=== PATIENT | male | born 1960 | race Caucasian/White ===

== ENCOUNTER 2020-08-10 15:51 | Outpatient (CLI) | payer OTHER | END 2020-08-10 15:52 | disposition left against medical advice (07) | LOC: EMS 15:51 | DX: R55 Syncope and collapse (principal); S51.812A Laceration without foreign body of left forearm, initial encounter; V57.5XXA Driver of pick-up truck or van injured in collision with fixed or stationary object in traffic accident, initial encounter; Y93.89 Activity, other specified; Y92.410 Unspecified street and highway as the place of occurrence of the external cause ==

== ENCOUNTER 2020-08-10 21:58 | Outpatient (CLI) | payer OTHER | END 2020-08-10 21:59 | disposition critical access hospital (66) | LOC: EMS 21:58 | DX: R60.0 Localized edema (principal) | CPT/HCPCS: A0425; A0429 ==

== ENCOUNTER 2020-08-10 22:22 | Emergency (ER) | payer OTHER ==
[2020-08-10] MEDS ORDERED: GABAPENTIN 100 MG CAPSULE PO STA (23:17)
[2020-08-10] MEDS ORDERED: FUROSEMIDE 40 MG/4 ML VIAL IVP STA (23:18)
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
[2020-08-10 23:19] LABS: BASOPHILS # (AUTO) 0.1 10^3/uL (0.0-0.1); BASOPHILS % (AUTO) 1.2 %; EOSINOPHILS # (AUTO) 0.2 10^3/uL (0.0-0.7); EOSINOPHILS % (AUTO) 2.4 %; HCT - HEMATOCRIT 43.4 % (42.0-52.0); HGB - HEMOGLOBIN 14.9 g/dL (14.0-18.0); LYMPHOCYTES # (AUTO) 1.6 10^3/uL (1.5-3.5); LYMPHOCYTES % (AUTO) 24.5 %; MEAN CORPUSCULAR HEMOGLOBIN 33.4 pg (27.0-31.0); MEAN CORPUSCULAR HGB CONC 34.3 g/dL (32.0-36.0); MEAN CORPUSCULAR VOLUME 97.3 fL (80.0-94.0); MEAN PLATELET VOLUME 10.4 fL (7.4-11.4); MONOCYTES # (AUTO) 0.6 10^3/uL (0.0-1.0); MONOCYTES % (AUTO) 9.3 %; NEUTROPHILS # (AUTO) 4.1 10^3/uL (1.5-6.6); NEUTROPHILS % (AUTO) 62.3 %; PLT - PLATELET COUNT 204 10^3/uL (130-450); RED BLOOD COUNT 4.46 10^6/uL (4.70-6.10); RED CELL DISTRIBUTION WIDTH 12.7 % (12.0-15.0); WHITE BLOOD COUNT 6.5 x10^3/uL (4.8-10.8)
[2020-08-10 23:22] LABS: BILIRUBIN,URINE NEGATIVE (NEGATIVE); GLUCOSE, URINE (UA) NEGATIVE (NEGATIVE); KETONES,URINE (UA) NEGATIVE (NEGATIVE); LEUKOCYTE ESTERASE, URINE NEGATIVE (NEGATIVE); NITRITE,URINE NEGATIVE (NEGATIVE); OCCULT BLOOD,URINE NEGATIVE (NEGATIVE); PROTEIN,URINE NEGATIVE (NEGATIVE); UROBILINOGEN,URINE 0.2 (NORMAL) E.U./dL (NORMAL)
[2020-08-10 23:23] LABS: CLARITY,URINE CLEAR (CLEAR)
[2020-08-10 23:32] LABS: ALBUMIN/GLOBULIN RATIO 1.4 (1.0-2.2); BILIRUBIN,TOTAL 0.6 mg/dL (0.2-1.0); CREATININE 0.8 mg/dL (0.6-1.2); ETOH - ETHANOL 156.6 mg/dL; POTASSIUM 3.9 mmol/L (3.5-5.0); TOTAL PROTEIN 6.8 g/dL (6.7-8.2)
--- NOTE | 2020-08-11 06:56 | Ultrasound Report ---
PROCEDURE: Duplex Ext Veins Bilateral INDICATIONS: ALAN CHAVEZ TECHNIQUE: Real-time imaging, as well as color and pulse Doppler interrogation, were performed of the deep veins of both legs from the inguinal ligament to the popliteal fossa. COMPARISON: None FINDINGS: The deep veins are normally compressible, and free of intraluminal thrombus. Color and pu lse Doppler demonstrate normal phasic intravascular flow. There is normal augmentation response to d istal compression maneuver. IMPRESSION: No evidence of deep vein thrombosis involving the right lower extremity. Reviewed by: Sahara Hull MD, PhD on 08/11/2020 6:54 AM PDT Approved by: Sahara Hull MD, PhD on 08/11/2020 6:54 AM PDT Station ID: [id number]
--- NOTE | 2020-08-11 08:12 | XRAY Report ---
PROCEDURE: Chest 1 View X-Ray INDICATIONS: chest pain TECHNIQUE: One view of the chest was acquired. COMPARISON: None. FINDINGS: Surgical changes and devices: None. Lungs and pleura: No pleural effusions or pneumothorax. Lungs are clear. Mediastinum: Mediastinal contours appear normal. Heart size is normal. Bones and chest wall: No suspicious bony lesions. Overlying soft tissues appear unremarkable. IMPRESSION: No acute cardiopulmonary pathology. No discrepancies from pulmonary region. Reviewed by: Juaquin Rodriguez MD on 08/11/2020 8:11 AM PDT Approved by: Juaquin Rodriguez MD on 08/11/2020 8:11 AM PDT Station ID: [id number]
[2020-08-11 10:11] VITALS: BP 143/77
== END 2020-08-11 10:11 | disposition home or self-care (01) ==
LOC: EDUNIT# → ED 22:22
DX: R60.1 Generalized edema (principal); F10.929 Alcohol use, unspecified with intoxication, unspecified; G47.30 Sleep apnea, unspecified; I10 Essential (primary) hypertension; F17.200 Nicotine dependence, unspecified, uncomplicated; Z86.16 Personal history of COVID-19
CPT/HCPCS: 36415; 71045; 80053; 80320; 81003; 83690; 83880; 84443; 84484; 85025; 93005; 93970; 96374; 99284; A9270; 81001; 87086

== ENCOUNTER 2020-10-06 07:04 | Outpatient (CLI) | payer OTHER ==
--- NOTE | 2020-10-06 13:50 | CT Report ---
PROCEDURE: Low Dose Lung Cancer Screen INDICATIONS: CURRENT SMOKER TECHNIQUE: Noncontrast low-dose images were acquired from the pulmonary apices to the posterior costophrenic ang les. Multiplanar MIP reformats were then acquired. For radiation dose reduction, the following was used: automated exposure control, adjustment of mA and/or kV according to patient size. COMPARISON: None. FINDINGS: Image quality: Excellent. Lungs and pleura: On series 4 image 151 in the anterior right upper lobe there is an approximately 4 mm subpleural solid nodule. No other pulmonary nodule or mass demonstrated. No acute airspace opacit y otherwise. Mild apical predominant centrilobular and paraseptal and to symphysis changes. No signif icant pleural abnormality. Mediastinum: Normal heart size. No pericardial effusion. Moderate coronary atherosclerosis. Normal ca liber thoracic aorta with mild atherosclerotic change. Normal caliber main pulmonary trunk. A partial enlarged mediastinal or hilar lymph node. Bones and chest wall: No suspicious blastic lesions in the chest wall. Vertebral body heights maintai starla and the thoracic spine. No threshold enlarged axillary lymph node. Abdomen: Visualized upper abdomen solid organs and bowel loops appear normal in the absence of contr ast. IMPRESSION: Single 4 mm subpleural right upper lobe pulmonary nodule. Lung-RADS Category 2 (benign appearance, <1% chance of malignancy). Recommendation: Continued annual screening with low-dose CT of the chest. Reviewed by: Adriel Jose MD on 10/06/2020 1:49 PM PDT Approved by: Adriel Jose MD on 10/06/2020 1:49 PM PDT Station ID: [id number]
== END 2020-10-06 07:05 | disposition home or self-care (01) ==
LOC: DI 07:04
PROVIDERS: ATTEND Internal Medicine
DX: Z12.2 Encounter for screening for malignant neoplasm of respiratory organs (principal); F17.210 Nicotine dependence, cigarettes, uncomplicated; R05 Cough; R91.1 Solitary pulmonary nodule

== ENCOUNTER 2021-06-25 09:24 | Day surgery (SDC) | payer OTHER ==
[2021-06-25] MEDS ORDERED: LACTATED RINGERS 1,000 ML IV ONE ×2 (09:28→11:28)
--- NOTE | 2021-06-25 10:01 | ANESTHESIA ---
Pre-Anesthesia VS, & Labs - Diagnosis screening - Procedure colonoscopy Vital Signs: Temp Pulse Resp BP Pulse Ox 36.6 C 103 H 14 147/90 H 95 06/25/21 09:28 06/25/21 09:28 06/25/21 09:28 06/25/21 09:28 06/25/21 09:28 Height: 6 ft Weight (kg): 86 kg Body Mass Index: 25.7 BMI Classification: Overweight - NPO >8 hours Home Medications and Allergies Gabapentin [Neurontin] 300 mg PO BID 08/10/20 Naproxen 500 mg PO DAILY 08/10/20 Allergies/Adverse Reactions: Allergies Allergy/AdvReac Type Severity Reaction Status Date / Time No Known Drug Allergies Allergy Verified 08/10/20 22:26 Anes History & Medical History - Anesthetic History Anesthesia Complications: reports: No previous complications - Medical History Cardiovascular: reports: Hypertension Pulmonary: reports: Asthma, Sleep apnea Neuro: reports: Peripheral neuropathy Musculoskeletal: reports: Chronic back pain Smoking Status: Current every day smoker (cigars) History of Cancer?: No - Surgical History Orthopedic: reports: Other Exam General: Alert, Oriented x3 Mouth Opening: Greater than 4 Fingerbreadths Mallampati classification: III Thyromental Distance: greater than 6 cm Respiratory: Lungs clear, Rales Cardiovascular: Regular rate, Normal S1, Normal S2 Plan Anesthesia Type: Total IV Consent for Procedure(s) Verified and Reviewed: Yes Code Status: Attempt Resuscitation ASA classification: 2-Mild systemic disease Is this case an emergency?: No
--- NOTE | 2021-06-25 10:12 | HISTORY & PHYSICAL EXAMINATION ---
Chief Complaint - Chief Complaint Chief Complaint: here for colon cancer screening History of Present Illness - History Obtained From Records Reviewed: yes History obtained from: pt Exam Limitations: none - History of Present Illness HPI Comment/Other: History of hemorrhoid or fissure problem with occasional blood on the tissue or into the toilet. No bloody stool, change in bowel habits, abdominal symptoms or anemia. History - Past Medical History Cardiovascular: reports: Hypertension Respiratory: reports: Asthma, Sleep apnea Neuro: reports: Peripheral neuropathy Musculoskeletal: reports: Chronic back pain MRSA Hx?: No - Past Surgical History Ortho: reports: Other Meds/Allgy - Home Medications Home Medications: Ambulatory Orders Medication Instructions Recorded Confirmed Gabapentin [Neurontin] 300 mg PO BID 08/10/20 06/24/21 Naproxen 500 mg PO DAILY 08/10/20 06/24/21 Furosemide [Lasix] 20 mg PO DAILY #20 tablet 08/11/20 06/24/21 Potassium Chloride 20 meq PO DAILY #20 tab 08/11/20 06/24/21 - Allergies Allergies/Adverse Reactions: Allergies Allergy/AdvReac Type Severity Reaction Status Date / Time No Known Drug Allergies Allergy Verified 08/10/20 22:26 Review of Systems - Other Findings Other Findings: 10 pt ros as above otherwise unremarkable Exam - Vital Signs Vital Signs: Vital Signs x48h Temp Pulse Resp BP Pulse Ox 06/25/21 09:28 36.6 C 103 H 14 147/90 H 95 - Physical Exam General Appearance: positive: No acute distress, Alert Eyes Bilateral: positive: PERRL, EOMI ENT: positive: No signs of dehydration Neck: positive: No JVD, Trachea midline Respiratory: positive: No respiratory distress, Breath sounds nml Cardiovascular: positive: Regular rate & rhythm Abdomen: positive: Non-tender, No distention Neurologic/Psychiatric: positive: Oriented x3 Conclusion/Plan - Problem List (1) Colon cancer screening Conclusion/Plan: history of blood on tissue and blood into toilet. Normal stool, no anemia, and no change in bowel habits. A FIT was done which came back positive. plan colonoscopy. parq held and consent obtained
[2021-06-25] MEDS ORDERED: PROPOFOL 500 MG/50 ML 500 MG/50 ML VIAL ONE (11:10)
[2021-06-25] MEDS ORDERED: PROPOFOL 200 MG/20 ML VIAL IVP ONE (11:10)
[2021-06-25 12:02] VITALS: BP 129/72
--- NOTE | 2021-06-25 12:34 | ANESTHESIA POST OP EVALUATION ---
Anesthesia Post Eval - Post Anesthesia Eval Vitals: Last Vital Signs Temp 37.3 C 06/25/21 11:50 Pulse 92 06/25/21 12:01 Resp 15 06/25/21 12:01 BP 129/72 06/25/21 12:01 Pulse Ox 93 06/25/21 12:01 CV Function Including HR & BP: Stable Pain Control: Satisfactory Nausea & Vomiting: Negative Mental Status: Baseline Respiratory Status: Airway Patent Hydration Status: Satisfactory Anesthesia Complications: None
== END 2021-06-25 09:25 | disposition home or self-care (01) ==
LOC: SDS 09:24
PROVIDERS: ATTEND Surgery
PROC: 0DBH8ZZ Excision of Cecum, Via Natural or Artificial Opening Endoscopic (ICD-10-PCS; 2021-06-25)
PROC: 0DBN8ZZ Excision of Sigmoid Colon, Via Natural or Artificial Opening Endoscopic (ICD-10-PCS; 2021-06-25)
PROC: 0DBM8ZZ Excision of Descending Colon, Via Natural or Artificial Opening Endoscopic (ICD-10-PCS; 2021-06-25)
PROC: 0DBL8ZZ Excision of Transverse Colon, Via Natural or Artificial Opening Endoscopic (ICD-10-PCS; principal; 2021-06-25 10:30)
DX: K57.31 Diverticulosis of large intestine without perforation or abscess with bleeding (principal); D12.3 Benign neoplasm of transverse colon; D12.4 Benign neoplasm of descending colon; D12.5 Benign neoplasm of sigmoid colon; D12.0 Benign neoplasm of cecum; G47.30 Sleep apnea, unspecified; J45.909 Unspecified asthma, uncomplicated; F17.290 Nicotine dependence, other tobacco product, uncomplicated
CPT/HCPCS: 45380; 45385; J7120

== ENCOUNTER 2023-07-25 01:36 | Outpatient (CLI) | payer OTHER | END 2023-07-25 23:59 | disposition critical access hospital (66) | LOC: EMS 01:36 | DX: M25.512 Pain in left shoulder (principal); S51.812A Laceration without foreign body of left forearm, initial encounter; W18.30XA Fall on same level, unspecified, initial encounter; Y92.002 Bathroom of unspecified non-institutional (private) residence as the place of occurrence of the external cause; F10.90 Alcohol use, unspecified, uncomplicated | CPT/HCPCS: A0425; A0429 ==

== ENCOUNTER 2023-07-25 01:56 | Emergency (ER) | payer OTHER ==
--- NOTE | 2023-07-25 02:38 | ED Physician Documentation ---
PD HPI UPPER EXT INJURY - Stated complaint Stated Complaint: GLF, RT ARM/SHOULDER INJURY - Chief complaint Chief Complaint: Trauma Ext - History obtained from History obtained from: Patient, EMS - Additonal information Additional information: BIBA. HPI from patient, EMS. Patient presents with chief complaint of left shoulder pain. This was of sudden onset approximately 2 hours [employer]OLOG[employer]BSERV[employer]. Patient says he slipped on his wet bathroom floor. Pain is distinctly exacerbated with any movement of the left shoulder. He denies head injury, denies headache, neck pain. He is not on any blood- thinning medications. He denies numbness, weakness. Patient is right hand dominant. PD PAST MEDICAL HISTORY - Past Medical History Past Medical History: Yes Cardiovascular: Hypertension Respiratory: Asthma, Sleep apnea Neuro: Peripheral neuropathy Musculoskeletal: Chronic back pain - Past Surgical History Past Surgical History: Yes Ortho: Other - Present Medications Home Medications: Ambulatory Orders Medication Instructions Recorded Confirmed Gabapentin [Neurontin] 300 mg PO BID 08/10/20 06/24/21 Naproxen 500 mg PO DAILY 08/10/20 06/24/21 Furosemide [Lasix] 20 mg PO DAILY #20 tablet 08/11/20 06/24/21 Potassium Chloride 20 meq PO DAILY #20 tab 08/11/20 06/24/21 HYDROcod/ACETAM 5/325 [Aurora 5/325] 1 - 2 tablet PO Q6H PRN #14 tablet 07/25/23 - Allergies Allergies/Adverse Reactions: Allergies Allergy/AdvReac Type Severity Reaction Status Date / Time No Known Drug Allergies Allergy Verified 07/25/23 02:04 - Social History Does the pt smoke?: Yes Smoking Status: Current every day smoker Does the pt drink ETOH?: Yes Does the pt have substance abuse?: No - Immunizations Immunizations are current?: Yes PD ED PE NORMAL - Vitals Vital signs reviewed: Yes - General General: Alert and oriented X 3, No acute distress (NAD at rest but obvious painful distress with any movement or manipulation involving left shoulder), Well developed/nourished - HEENT HEENT: Atraumatic, PERRL, EOMI - Neck Neck: No bony TTP - Cardiac Cardiac: RRR - Respiratory Respiratory: No respiratory distress, Clear bilaterally - Abdomen Abdomen: Soft, Non tender - Neuro Neuro: Alert and oriented X 3, hat binder 2-12 intact, No motor deficit, No sensory deficit, Normal speech Eye Opening: Spontaneous Motor: Obeys Commands Verbal: Oriented GCS Score: 15 PD ED PE EXPANDED - Extremities Extremities: Tenderness (left shoulder), Limited ROM (left shoulder), Swelling (left shoulder), Bruising (lateral aspect left shoulder), Other (LTS intact left hand and lateral aspect left shoulder/deltoid, brisk capillary refill left fingertips with strong left radial pulse) ANTONELLA UE/Hands Visual: 1 - abrasion (large abrasion/skin tear) Results - Vitals Vitals: Vital Signs - 24 hr 07/25/23 07/25/23 07/25/23 02:02 04:04 06:00 Temperature 36.4 C L Heart Rate 94 89 61 Respiratory 18 18 18 Rate Blood Pressure 126/78 107/66 116/65 O2 Saturation 99 92 98 07/25/23 07:16 Temperature Heart Rate 87 Respiratory 18 Rate Blood Pressure 114/56 L O2 Saturation 98 Oxygen O2 Source Room air - Rads (name of study) left shoulder xrays Relevant Findings:: Prelim report reviewed, See rad report PD Medical Decision Making - ED course Complexity details: reviewed results, re-evaluated patient, considered diff erential, d/w patient ED course: Patient presents with isolated left shoulder injury/pain, x-rays Demonstrate proximal humeral fracture. He is placed in a sling, given 1 mg IV Dilaudid with good analgesia (per patient report). She is provided take-home pack of Vicodin, e-prescribed Vicodin to his pharmacy of choice, advised to follow-up with orthopedic surgery. Patient stayed in the emergency department for nearly 6 hours, the majority of this stay due to patient being unable to procure a ride. Note that shortly prior to discharge, the patient was reporting increased pain. Rather than having him take one of the provided Vicodin, he is given 5 mg p.o. oxycodone. He reports adequate analgesia with this intervention. Departure - Departure Disposition: 01 Home, Self Care Clinical Impression: Proximal humeral fracture Qualifiers: Encounter type: initial encounter Fracture type: closed Fracture morphology: other fracture Fracture alignment: displaced Laterality: left Qualified Code(s): S42.292A - Other displaced fracture of upper end of left humerus, initial encounter for closed fracture Condition: Good Instructions: ED Fx Shoulder, ED Sling Follow-Up: Ilia Silverio MD [Provider Admit Priv/Credential] - Prescriptions: HYDROcod/ACETAM 5/325 [Aurora 5/325] 1 - 2 tablet PO Q6H PRN #14 tablet PRN Reason: Pain Comments: The x-rays show that you have broken your shoulder at the top of the bone of your upper arm (humerus). Keep your arm in the provided sling until you follow- up with an medical reception specialist and/or instructed otherwise. I am providing you with a prescription for Vicodin (narcotic/opiate pain medication) for pain that is not controlled with ibuprofen or naproxen. I recommend you avoid acetaminophen (Tylenol), as there is also acetaminophen in Vicodin, and too much acetaminophen can be very dangerous to your liver. However, if you take ibuprofen or naproxen and you do not have effective pain relief within an hour, you can then take the Vicodin. I am prescribing a short course of narcotic pain medication for you. These are potentially dangerous and addictive medications that should be used carefully. These medications may constipate you. Take an [id number] stool softener (docusate) twice daily with plenty of water while taking these medications. If you go 24 hours without a bowel movement, take [id number] miralax, per package instructions. Do not drink or drive while taking these medications. If you received narcotic or sedating medications while in the emergency department, do not drive for 24 hours. Store this medication in a safe, secure place and out of reach of children. It is a violation of federal law to give or sell this medication to another person or to use in a manner other than prescribed. The ED will not refill narcotic prescriptions, including prescriptions lost or stolen. To dispose of unwanted medications: 1. [facility] [address] in [place] has a medication drop box. They accept prescription medications (in pill form) Monday through Monday 9:00 a.m. to 5:00 p.m. 2. The [facility] [employer] accepts prescription medications (in pill form only) for disposal year round. Call for more information. 3. Contact the [facility] for the next [facility] sponsored prescription drug collection event. , [phone], or [phone]; Discharge Date/Time: 07/25/23 07:42
[2023-07-25] MEDS: HYDROcod/ACET 5/325 Prepack 4 PO STA (03:23)
[2023-07-25] MEDS: HYDROmorphone 1 MG/ML CARPUJECT IVP STA (03:44)
[2023-07-25 06:09] VITALS: O2SAT 98
[2023-07-25] MEDS: oxyCODONE 5 MG TABLET PO STA (07:09)
[2023-07-25 07:22] VITALS: BP 114/56
--- NOTE | 2023-07-25 10:13 | XRAY Report ---
PROCEDURE: Shoulder 2+V LT INDICATIONS: fall TECHNIQUE: 3 views of the shoulder were acquired. COMPARISON: None. FINDINGS: Bones: There is retrocrural the proximal humeral diaphysis near the level of the humeral neck. There is displacement of the humeral head. There is overall superior subluxation at the glenohumeral joint space. Soft tissues: No suspicious soft tissue calcifications. The visualized lungs are within normal limi ts. IMPRESSION: Proximal humeral diaphyseal fracture with mild displacement of the humeral head. The above findings are concordant with preliminary report. Reviewed by: Robina Regalado MD on 07/25/2023 10:12 AM PDT Approved by: Robina Regalado MD on 07/25/2023 10:12 AM PDT Station ID: [id number]
== END 2023-07-25 07:42 | disposition home or self-care (01) ==
LOC: EDUNIT# → ED 01:56
DX: S42.292A Other displaced fracture of upper end of left humerus, initial encounter for closed fracture (principal); W01.0XXA Fall on same level from slipping, tripping and stumbling without subsequent striking against object, initial encounter; Y92.002 Bathroom of unspecified non-institutional (private) residence as the place of occurrence of the external cause; I10 Essential (primary) hypertension; F17.200 Nicotine dependence, unspecified, uncomplicated; Z79.899 Other long term (current) drug therapy
CPT/HCPCS: 73030; 96374; 99284; A9270; J1170

== ENCOUNTER 2023-08-16 11:11 | Outpatient (CLI) | payer OTHER ==
--- NOTE | 2023-08-17 02:08 | XRAY Report ---
PROCEDURE: Shoulder 2+V LT INDICATIONS: LEFT SHOULDER PAIN TECHNIQUE: 3 views of the shoulder were acquired. COMPARISON: 07/25/2023 FINDINGS: Bones: Comminuted proximal humeral fracture shows persistent fracture lines and only trace bridging c allus with remodeling. Heterotopic soft tissue calcification noted. Soft tissues: Left lung apex is clear IMPRESSION: Unremarkable shoulder radiographs Reviewed by: Jose Lion MD on 08/17/2023 1:07 AM [email or web address] Approved by: Jose Lion MD on 08/17/2023 1:07 AM AKDT Station ID: [id number]
== END 2023-08-16 11:12 | disposition home or self-care (01) ==
LOC: DI 11:11
PROVIDERS: ATTEND Orthopaedic Surgery
DX: S42.202A Unspecified fracture of upper end of left humerus, initial encounter for closed fracture (principal)

== ENCOUNTER 2023-10-06 17:22 | Outpatient (CLI) | payer OTHER | END 2023-10-06 17:23 | disposition EMS.NT | LOC: EMS 17:22 | DX: S51.811A Laceration without foreign body of right forearm, initial encounter (principal); S61.412A Laceration without foreign body of left hand, initial encounter; W10.8XXA Fall (on) (from) other stairs and steps, initial encounter; Y92.008 Other place in unspecified non-institutional (private) residence as the place of occurrence of the external cause ==